=== PATIENT | male | born 1965 | race Caucasian/White ===

== ENCOUNTER 2019-10-22 17:27 | Emergency (ER) | payer OTHER ==
[~2019-10-22] VITALS: Ht 172.7 cm; Wt 81.6 kg
--- NOTE | 2019-10-22 17:35 | NUR ---
C/O NAUSEA VOMITING AND HICCUPS X 3 DAYS. PATIENT A/OX4, BREATHING EVEN AND UNLABORED, NO SOB NOTED, NEEDS ATTENDED.
[2019-10-22] MEDS ORDERED: FAMOTIDINE/PF INJ 20 MG/2 ML VIAL IV ONE ×2 (18:00→18:12)
[2019-10-22] MEDS ORDERED: METOCLOPRAMIDE HCL 10 MG/2 ML VIAL IV ONE (18:00)
[2019-10-22] MEDS ORDERED: IV NS 0.9% 1,000 ML BAG IV ONE ×2 (18:00→19:00)
[2019-10-22] MEDS ORDERED: diphenhydrAMINE HCL 50 MG/ML VIAL IV ONE (18:00)
[2019-10-22] MEDS ORDERED: diphenhydrAMINE HCL 50 MG/ML VIAL ONE (18:10)
[2019-10-22] MEDS ORDERED: METOCLOPRAMIDE HCL 10 MG/2 ML VIAL ONE (18:10)
[2019-10-22 18:18] LABS: BASOPHILS # (AUTO) 0.1 /CMM (0.0-0.2); BASOPHILS % (AUTO) 0.8 % (0.0-2.0); EOSINOPHILS % (AUTO) 0.1 % (0.0-6.0); HEMATOCRIT 44 % (39-51); HEMOGLOBIN 15.5 g/dL (13.5-17.5); LYMPHOCYTES # (AUTO) 1.8 /CMM (0.8-4.8); LYMPHOCYTES % (AUTO) 14.1 % (20.0-44.0); MEAN CORPUSCULAR HGB CONC 35 g/dl (31.0-36.0); MEAN CORPUSCULAR VOLUME 90 fL (80-96); MONOCYTES # (AUTO) 1.1 /CMM (0.1-1.30); NEUTROPHILS # (AUTO) 9.6 /CMM (1.8-8.9); PLATELET COUNT (AUTO) 234 /CMM (150-450); RED BLOOD CELL COUNT(AUTO) 4.94 MIL/uL (4.5-6.0); WHITE BLOOD COUNT (AUTO) 12.6 K/uL (4.3-11.0)
[2019-10-22 18:28] LABS: CALCIUM, SERUM 8.8 mg/dL (8.5-10.1); CARBON DIOXIDE 26 mmol/L (21-32); CHLORIDE 84 mmol/L (98-107); CREATININE 2.7 mg/dL (0.6-1.3); GLUCOSE 227 mg/dL (74-106); POTASSIUM 2.9 mmol/L (3.5-5.1); SODIUM SERUM 124 mmol/L (136-145); UREA NITROGEN, BLOOD 49 mg/dL (7-18)
[2019-10-22 18:34] LABS: ALANINE AMINOTRANSFERASE 34 U/L (12-78); ALBUMIN 3.9 g/dL (3.4-5.0); ALKALINE PHOSPHATASE 88 U/L (46-116); ASPARTATE AMINOTRANSFERASE 22 U/L (15-37); BILIRUBIN,DIRECT 0.4 mg/dL (0.0-0.2); BILIRUBIN,TOTAL 1.5 mg/dL (0.2-1.0); LIPASE 129 U/L (73-393); TOTAL PROTEIN, SERUM 6.6 g/dL (6.4-8.2)
[2019-10-22 18:38] LABS: BILIRUBIN,URINE SMALL (NEGATIVE); BLOOD, URINE Trace-lysed Ery/uL (NEGATIVE); KETONES,URINE 15 (NEGATIVE); LEUKOCYTE ESTERASE ,URINE Negative (NEGATIVE); NITRITE, URINE Negative (NEGATIVE); PROTEIN,URINE 100 mg/dl (NEGATIVE); UGLUCOSE Negative (NEGATIVE); UROBILINOGEN,URINE 0.2 EU/dL (0.2)
[2019-10-22 18:39] LABS: APPEARANCE,URINE SLIGHTLY CLOUDY (CLEAR); COLOR,URINE DARK YELLOW (YELLOW)
[2019-10-22 19:12] LABS: BACTERIA,URINE Many /HPF (None Seen); SQUAMOUS EPITHELIAL CELL,UR Few /HPF (None Seen)
[2019-10-22] MEDS ORDERED: chlorproMAZINE HCL 25 MG TABLET ONE (19:16)
[2019-10-22] MEDS ORDERED: chlorproMAZINE HCL 25 MG TABLET PO ONE (19:30)
--- NOTE | 2019-10-22 20:21 | NUR ---
Patient discharged to home in stable condition. Written and verbal after care instructions given. Patient verbalizes understanding of instruction and RX. Pt feels better, no hiccups ntoed.
--- NOTE | 2019-10-22 20:21 | NUR ---
IV removed. Catheter intact and site benign. Pressure and 4x4 applied to site. No bleeding noted.
[2019-10-22 20:22] VITALS: BP 112/76
== END 2019-10-22 20:22 | disposition home or self-care (01) ==
LOC: ER 17:31
DX: R06.6 Hiccough (principal); R10.13 Epigastric pain; N17.9 Acute kidney failure, unspecified; E86.0 Dehydration; R11.2 Nausea with vomiting, unspecified; E11.65 Type 2 diabetes mellitus with hyperglycemia; F12.90 Cannabis use, unspecified, uncomplicated; F17.200 Nicotine dependence, unspecified, uncomplicated; I25.10 Atherosclerotic heart disease of native coronary artery without angina pectoris; E78.5 Hyperlipidemia, unspecified; I10 Essential (primary) hypertension; K21.9 Gastro-esophageal reflux disease without esophagitis
CPT/HCPCS: 36415; 71045; 76705; 80048; 80076; 81001; 83690; 84484; 85025; 85730; 87086; 93005; 96361; 96374; 96375; 99285; 99406; J1200; J2765; J3490; J7030 ×2; Q0161; 81000-TC; J3230

== ENCOUNTER 2019-11-19 09:49 | Emergency (ER) | payer OTHER ==
[~2019-11-19] VITALS: Ht 177.8 cm; Wt 83.9 kg
[2019-11-19 09:58] VITALS: BP 130/76
--- NOTE | 2019-11-19 10:36 | NUR ---
PATIENT SENT HOME WITH DC PACKET . NO ACUTE DISTRESS NOTED AT TIME OF DC.
--- NOTE | 2019-11-19 10:51 | NUR ---
Patient discharged to home in stable condition. Written and verbal after care instructions given. Patient verbalizes understanding of instruction.
== END 2019-11-19 10:52 | disposition home or self-care (01) ==
LOC: ER 09:57
DX: K40.90 Unilateral inguinal hernia, without obstruction or gangrene, not specified as recurrent (principal); I10 Essential (primary) hypertension; K21.9 Gastro-esophageal reflux disease without esophagitis; E11.9 Type 2 diabetes mellitus without complications